=== PATIENT | male | born 1985 | race Hispanic/Latino ===

== ENCOUNTER 2017-01-17 07:48 | Emergency (ER) | payer SELFPAY ==
[~2017-01-17] VITALS: Ht 182.9 cm; Wt 152.0 kg
[2017-01-17] MEDS ORDERED: PEN-VEE K,VEET500 MG PO (08:19)
[2017-01-17] MEDS ORDERED: NAPROXEN500 MG PO (08:19)
[2017-01-17 08:49] VITALS: BP 156/74
== END 2017-01-17 08:50 | disposition home or self-care (01) ==
LOC: EME 07:48
PROC: 3E0T3BZ Introduction of Anesthetic Agent into Peripheral Nerves and Plexi, Percutaneous Approach (ICD-10-PCS; principal; 2017-01-17)
DX: K03.81 Cracked tooth (principal); F17.200 Nicotine dependence, unspecified, uncomplicated
CPT/HCPCS: 99281; 99284